=== PATIENT | male | born 1990 | race Caucasian/White ===

== ENCOUNTER 2019-11-19 13:45 | Emergency (ER) | payer MEDICAID ==
--- NOTE | 2019-11-19 13:55 | ERPHSYRPT ---
- History of Present Illness Time Seen by Provider: 11/19/19 13:55 Source: patient Exam Limitations: no limitations Physician History: Patient is a 29-year-old male who presents with a chief complaint of a cough. Onset reported was last , 03/2020. In addition to his cough, endorsed having sinus congestion, rhinorrhea, and a hoarse voice. Of note, the patient reportedly is homeless and just traveled from [facility] to [facility] to stay with family. He states that he sustained a laceration to his left anterior leg a week ago when he was walking in a shop in the dark and tripped over a metal pulling trailer resulting in the injury. He is concerned that he may have sustained a wound infection which led to his URI symptoms. He denies fever, chills, shortness of breath, chest pain, nausea, vomiting in addition to diarrhea and abdominal pain. Of note, the patient states that he is a daily drinker and had 3-4 shots of liquor this morning and usually consumes 1/5 of liquor a day. The patient is also a daily smoker and smokes marijuana with his last marijuana use being yesterday. His last tetanus prophylaxis was reportedly 4 to 5 years ago. He does not have a primary care provider which he follows with. Allergies/Adverse Reactions: watermelon Allergy (Mild, Verified 11/19/19 13:59) Hives - Review of Systems Constitutional: No Fever, No Chills Eyes: No Symptoms Ears, Nose, & Throat: Nose Congestion, Sinus Drainage, Hoarse, No Stridor Respiratory: Cough, No Dyspnea, No Stridor, No Wheezing Cardiac: No Symptoms, No Chest Pain, No Edema, No Palpitations, No Syncope Abdominal/Gastrointestinal: No Symptoms, No Nausea, No Vomiting Musculoskeletal: No Symptoms Skin: Other (Laceration to anterior left lower leg) Neurological: No Symptoms Endocrine: No Symptoms Hematologic/Lymphatic: No Symptoms Immunological/Allergic: No Symptoms All Other Systems: Reviewed and Negative - Nursing Vital Signs Nursing Vital Signs: Initial Vital Signs Temperature 97.8 F 11/19/19 13:53 Pulse Rate 94 H 11/19/19 13:53 Respiratory Rate 22 11/19/19 13:53 Blood Pressure 140/92 11/19/19 13:53 O2 Sat by Pulse Oximetry 98 11/19/19 13:53 Pain Scale Pain Intensity 0 - Physical Exam General Appearance: no apparent distress, alert Eye Exam: PERRL/EOMI, No photophobia, No EOM palsy/anisocoria Ears, Nose, Throat Exam: TMs normal, pharynx normal, moist mucous membranes, No TM abnormal (R), No TM abnormal (L), No pharyngeal erythema, No tonsillar exudate Neck Exam: non-tender, supple, meningismus Respiratory Exam: normal breath sounds, lungs clear, airway intact, No chest tenderness, No respiratory distress, No diminished breath sounds Cardiovascular Exam: regular rate/rhythm, normal heart sounds, capillary refill <2 sec, No murmur, No friction rub, No gallop, No edema, No pulse deficit Gastrointestinal/Abdomen Exam: soft, No tenderness, No distention Rectal Exam: deferred Extremity Exam: other (There was an estimated 7 to 10 cm in length laceration/ wound noted to the anterior aspect of the left lower leg with mild surrounding swelling but with no erythema, induration, fluctuance or increased warmth and a wound already had eschar/scab. Crepitus or deformity noted to the left lower extremity.), No pedal edema, No swelling, No tenderness Neurologic Exam: alert, oriented x 3, cooperative Skin Exam: warm, dry, other (There was an estimated 7 to 10 cm in length laceration/wound noted to the anterior aspect of the left lower leg with mild surrounding swelling but with no erythema, induration, fluctuance or increased warmth and a wound already had eschar/scab. Crepitus or deformity noted to the left lower extremity.), No rash, No petechiae, No jaundice SpO2 Interpretation: normal O2 Delivery: Room Air - Course Nursing assessment & vital signs reviewed: Yes - Radiology Exams Chest X-ray Interpretation: Reviewed by me, Negative Ordered Tests: Active Orders 24 hr Category Date Time Status CHEST 2 VIEWS (PA AND LAT) Stat Exams 11/19/19 14:19 Taken - Progress Progress: unchanged Progress Note: 11/19/19 21:21 Toxic in appearance. The patient's [place]. Reviewed show no evidence of focal pneumonia. I suspect his symptoms are likely secondary to a viral upper respiratory tract infection. He has no fever and he is outside the window to receive Tamiflu given and his symptoms are greater than 48 hours in duration and therefore since he will not be prescribed any antivirals for influenza the utility for testing was thought to be a moot point given that it would not policy change clerk. His wound appears to be healing well and does not appear to need primary closure in the emergency department at this time given that it is nearly a week old. The patient was instructed to refrain from smoking and using marijuana in addition to attempting to cut down on his alcohol use. He was prescribed symptomatic treatment to include Tessalon Perles, albuterol, in addition to saline nasal spray and Afrin for symptomatic relief. Counseled pt/family regarding: diagnosis, need for follow-up, rad results, smoking cessation - Departure Departure Disposition: Home, In-patient Admission Clinical Impression: Upper respiratory tract infection, Laceration of left leg, Tobacco abuse, Alcoholism, Elevated blood pressure reading Condition: Stable Critical Care Time: No Referrals: DOCTOR,NO FAMILY [Primary Care Provider] - Instructions: Alcohol Use - When Is Drinking a Problem?, High Blood Pressure in Adults, Viral Upper Respiratory Infection, Adult (DC), Wound Care, Quitting Smoking Prescriptions: Benzonatate [Tessalon Perle] 100 mg PO [id number] PRN #30 capsule PRN Reason: Cough Albuterol 8 gm Mdi Hfa [Ventolin Hfa MDI] 90 mcg IH Q4H PRN #1 [id number] PRN Reason: Shortness Of Breath Oxymetazoline HCl Nasal [Afrin Nasal Ramsay] 15 ml NS BID 3 Days #1 bottle Sodium Chloride [Saline Nasal Ramsay] 30 ml NS BID PRN #1 spray
[2019-11-19 14:00] VITALS: O2SAT 98
[2019-11-19 14:50] VITALS: BP 130/85; PULSE 93
--- NOTE | 2019-11-20 10:27 | XRAY ---
Indication: Cough. Comparison: None PA/lateral chest demonstrates normal heart, lungs, and bony thorax with a few incidental tiny calcified granulomas.
== END 2019-11-19 15:08 | disposition home or self-care (01) ==
LOC: ED 13:45
DX: J06.9 Acute upper respiratory infection, unspecified (principal)
CPT/HCPCS: 71046; 99284

== ENCOUNTER 2020-04-07 15:45 | Emergency (ER) | payer SELFPAY ==
[2020-04-07] MEDS ORDERED: Zofran 4 MG/2 ML VIAL ONE (16:58)
--- NOTE | 2020-04-07 16:58 | ERPHSYRPT ---
- History of Present Illness Time Seen by Provider: 04/07/20 16:33 Source: patient Exam Limitations: no limitations Patient Subjective Stated Complaint: Pt stated started "feeling bad with tooth on Mon." Has felt bad since. 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 C/o "very hot" Triage Nursing Assessment: Found patient laying on floor in waiting room. States hot and tired.Lethargic but responds to directions. Able to stand on lown.C/o extremely hot and skin hot and dry and reddened. Temp 98.0. States cough and SOB started yesterday. States prod cough of restrepo/brown sputum. Lungs clear but dim in bases. States tooth started hurting las Mon and started taking friends antibiotic of Keflex until today. Physician History: 29 years old male with history of alcohol/tobacco abuse presented in the ER with chief complaint of left lower jaw/tooth ache for the last 5 days with progressive worsening associated with swelling of lower jaw, moderate to severe intensity, aggravated with movements of jaw/swallowing and pain referred to left ear and neck. He denies fever or chills. He has been taking Keflex which was given to him by his friend for the last 2 days. Denies any chest pain palpitations or shortness of breath but what he has at his baseline. Patient is complaining of coughing up yellow-green to brown sputum moderate in amount. Denies any abdominal pain nausea or vomiting. He is complaining of generalized weakness and fatigue with no energy to do his routine activities. 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 On presentation in the ER patient was lying on the floor as he is feeling hot/burning up. He is afebrile. Patient drinks heavily almost half a gallon of vodka daily and last drink was 4 hours ago. Severity: moderate Associated Symptoms: cough, malaise, weakness, No abdominal pain, No shortness of breath, No heartburn, No chills, No chest pain, No fever, No headaches, No loss of appetite Allergies/Adverse Reactions: watermelon Allergy (Mild, Verified 11/19/19 13:59) Hives Hx Tetanus, Diphtheria Vaccination/Date Given: No Hx Influenza Vaccination/Date Given: No Hx Pneumococcal Vaccination/Date Given: No Immunizations Up to Date: No Travel Risk - International Travel Have you traveled outside of the country in past 3 weeks: No - Coronavirus Screening Are you exhibiting any of the following symptoms?: Yes Close contact with a COVID-19 positive Pt in past 14-21 Days: No - Review of Systems Constitutional: Weakness Eyes: No Symptoms Ears, Nose, & Throat: No Symptoms Respiratory: Cough Cardiac: No Symptoms Abdominal/Gastrointestinal: No Symptoms Genitourinary Symptoms: No Symptoms Musculoskeletal: No Symptoms Skin: No Symptoms Psychological: No Symptoms Endocrine: No Symptoms Hematologic/Lymphatic: No Symptoms Immunological/Allergic: No Symptoms - Past Medical History Pertinent Past Medical History: Yes Neurological History: No Pertinent History ENT History: No Pertinent History Cardiac History: No Pertinent History Respiratory History: No Pertinent History Endocrine Medical History: No Pertinent History Musculoskeletal History: No Pertinent History GI Medical History: No Pertinent History History: No Pertinent History Psycho-Social History: No Pertinent History Male Reproductive Disorders: No Pertinent History Other Medical History: states hx frequent ear infections - Past Surgical History Past Surgical History: No Neuro Surgical History: No Pertinent History Cardiac: No Pertinent History Respiratory: No Pertinent History Gastrointestinal: No Pertinent History Genitourinary: No Pertinent History Musculoskeletal: No Pertinent History Male Surgical History: No Pertinent History Other Surgical History: knee surgery, left - Social History Smoking Status: Current every day smoker How long have you smoked: 20 yr Exposure to second hand smoke: Yes Drug Use: none Patient Lives Alone: No - Nursing Vital Signs Nursing Vital Signs: Initial Vital Signs Temperature 98.0 F 04/07/20 16:20 Pulse Rate 95 H 04/07/20 16:20 Respiratory Rate 22 04/07/20 16:20 Blood Pressure 135/95 04/07/20 16:20 O2 Sat by Pulse Oximetry 98 04/07/20 16:20 Pain Scale Pain Intensity 2 - Physical Exam General Appearance: no apparent distress, alert, anxiety Eye Exam: PERRL/EOMI, eyes nml inspection Ears, Nose, Throat Exam: normal ENT inspection, TMs normal, pharyngeal erythema, other (Mildly splinting left premolar and molar area gingiva. No fluctuation. Tenderness to touch. 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, nml cerebellar function, nml station & gait, sensation nml, other, No motor deficits Skin Exam: normal color Lymphatic Exam: adenopathy SpO2 Interpretation: normal SpO2: 98 O2 Delivery: Room Air - Course Nursing assessment & vital signs reviewed: Yes EKG Interpreted by Me: RATE ([id number]), Sinus Rhythm, NORMAL AXIS, NORMAL INTERVALS, NORMAL QRS Ordered Tests: Active Orders 24 hr Category Date Time Status Accucheck STAT Care 04/07/20 16:49 Completed EKG-ER Only STAT Care 04/07/20 16:49 Completed IV Insertion STAT Care 04/07/20 16:49 Completed IV Insertion STAT Care 04/07/20 16:51 Completed CHEST 1 VIEW (PORTABLE) Stat Exams 04/07/20 16:50 Completed CBC W DIFF Stat Lab 04/07/20 16:49 Completed CK (IN-HOUSE) [CK-Creatinine Phosphokinase] Stat Lab 04/07/20 Completed CMP Stat Lab 04/07/20 16:49 Completed ETHYL ALCOHOL Stat Lab 04/07/20 16:49 Completed LIPASE Stat Lab 04/07/20 16:49 Completed Lactic Acid Stat Lab 04/07/20 17:20 Completed Lactic Acid Stat Lab 04/07/20 19:23 Completed MAGNESIUM Stat Lab 04/07/20 16:49 Completed TROPONIN Q3H Lab 04/07/20 16:49 Completed TROPONIN Q3H Lab 04/07/20 20:00 Completed UA W/RFX UR CULTURE Stat Lab 04/07/20 16:54 Completed Urine Triage Profile Stat Lab 04/07/20 16:54 Completed Medication Summary Discontinued Medications Generic Name Dose Route Start Last Admin Trade Name Freq PRN Reason Stop Dose Admin Amoxicillin/Clavulanate Potassium 875 mg 04/07/20 20:27 04/07/20 20:30 Augmentin 875-125 Tablet PO 04/07/20 20:28 875 mg STAT ONE Administration Amoxicillin/Clavulanate Potassium Confirm 04/07/20 20:29 Augmentin 875-125 Tablet Administered 04/07/20 20:30 Dose 875 mg .ROUTE .STK-MED ONE Sodium Chloride 1,000 mls @ 999 mls/hr 04/07/20 16:49 04/07/20 18:16 Sodium Chloride 0.9% 1000 Ml IV 04/07/20 17:49 Infused .Q1H1M STA Infusion Sodium Chloride 1,000 mls @ 999 mls/hr 04/07/20 16:51 04/07/20 18:16 Sodium Chloride 0.9% 1000 Ml IV 04/07/20 17:51 Infused .Q1H1M STA Infusion Sodium Chloride Confirm 04/07/20 16:59 Sodium Chloride 0.9% 1000 Ml Administered 04/07/20 17:00 Dose 2,000 mls @ ud .ROUTE .STK-MED ONE Sodium Chloride 1,000 mls @ 999 mls/hr 04/07/20 18:53 04/07/20 20:32 Sodium Chloride 0.9% 1000 Ml IV 04/07/20 19:53 Infused .Q1H1M STA Infusion Sodium Chloride Confirm 04/07/20 18:55 Sodium Chloride 0.9% 1000 Ml Administered 04/07/20 18:56 Dose 1,000 mls @ ud .ROUTE .STK-MED ONE Lidocaine HCl 5 ml 04/07/20 16:56 04/07/20 17:04 Xylocaine Viscous 2% 20 Ml Cup PO 04/07/20 16:57 5 ml STAT ONE Administration Lidocaine HCl Confirm 04/07/20 16:59 Xylocaine Hcl Viscous * Administered 04/07/20 17:00 Dose 5 ml .ROUTE .STK-MED ONE Ondansetron HCl 4 mg 04/07/20 16:49 04/07/20 17:03 Zofran 4 Mg/2 Ml Vial IV 04/07/20 16:50 4 mg STAT ONE Administration Ondansetron HCl Confirm 04/07/20 16:58 Zofran 4 Mg/2 Ml Vial Administered 04/07/20 16:59 Dose 4 mg .ROUTE .STK-MED ONE Lab/Rad Data: Laboratory Result Diagrams 04/07/20 16:49 04/07/20 16:49 Laboratory Results 04/07/20 04/07/20 04/07/20 Range/Units Unknown Unknown 20:00 WBC (4.0-10.5) K/mm3 RBC (4.1-5.6) M/mm3 Hgb (12.5-18.0) gm/dl Hct (42-50) % MCV (78-100) fl MCH (26-32) pg MCHC (32-36) g/dl RDW (11.5-14.0) % Plt Count (150-450) K/mm3 MPV (7.5-11.0) fl Gran % (36.0-66.0) % Eos # (Auto) (0-0.5) Absolute Lymphs (auto) (1.0-4.6) Absolute Monos (auto) (0.0-1.3) Lymphocytes % (24.0-44.0) % Monocytes % (0.0-12.0) % Eosinophils % (0.00-5.0) % Basophils % (0.0-0.4) % Absolute Granulocytes (1.4-6.9) Basophils # (0-0.4) Sodium (137-145) mmol/L Potassium (3.5-5.1) mmol/L Chloride (98-107) mmol/L Carbon Dioxide (22-30) mmol/L Anion Gap (5-15) MEQ/L BUN (9-20) mg/dL Creatinine (0.66-1.25) mg/dL Estimated GFR ML/MIN Glucose (74-106) mg/dL Lactic Acid (0.4-2.0) Calcium (8.4-10.2) mg/dL Magnesium (1.6-2.3) mg/dL Total Bilirubin (0.2-1.3) mg/dL AST (17-59) U/L ALT (0-50) U/L Alkaline Phosphatase (38-126) U/L Creatine Kinase 68 (55-170) U/L Troponin I < 0.012 (0.000-0.034) ng/mL Serum Total Protein (6.3-8.2) g/dL Albumin (3.5-5.0) g/dL Lipase (23-300) U/L Urine Color (YELLOW) Urine Appearance (CLEAR) Urine pH (5-6) Ur Specific [place] (1.005-1.025) Urine Protein (Negative) Urine Ketones (NEGATIVE) Urine Blood (0-5) Tarik/ul Urine Nitrite (NEGATIVE) Urine Bilirubin (NEGATIVE) Urine Urobilinogen (0-1) mg/dL Ur Leukocyte Esterase (NEGATIVE) Urine WBC (Auto) (0-5) /HPF Urine RBC (Auto) (0-2) /HPF U Epithel Cells (Auto) (FEW) /HPF Urine Bacteria (Auto) (NEGATIVE) /HPF Urine Culture Reflexed (NO) Urine Glucose (NEGATIVE) mg/dL Urine Opiates Level (NEGATIVE) Ur Methadone (NEGATIVE) Urine Barbiturates (NEGATIVE) Ur Phencyclidine (PCP) (NEGATIVE) Urine Amphetamine (NEGATIVE) U Benzodiazepine Level (NEGATIVE) Urine Cocaine (NEGATIVE) Urine Marijuana (THC) (NEGATIVE) Ethyl Alcohol (0-10) mg/dL Influenza Type A Ag (NEGATIVE) Influenza Type B Ag (NEGATIVE) RSV (PCR) (Negative) Group A Strep Antibody NOT DETECTED (NEGATIVE) 04/07/20 04/07/20 04/07/20 Range/Units 19:23 17:20 17:00 WBC (4.0-10.5) K/mm3 RBC (4.1-5.6) M/mm3 Hgb (12.5-18.0) gm/dl Hct (42-50) % MCV (78-100) fl MCH (26-32) pg MCHC (32-36) g/dl RDW (11.5-14.0) % Plt Count (150-450) K/mm3 MPV (7.5-11.0) fl Gran % (36.0-66.0) % Eos # (Auto) (0-0.5) Absolute Lymphs (auto) (1.0-4.6) Absolute Monos (auto) (0.0-1.3) Lymphocytes % (24.0-44.0) % Monocytes % (0.0-12.0) % Eosinophils % (0.00-5.0) % Basophils % (0.0-0.4) % Absolute Granulocytes (1.4-6.9) Basophils # (0-0.4) Sodium (137-145) mmol/L Potassium (3.5-5.1) mmol/L Chloride (98-107) mmol/L Carbon Dioxide (22-30) mmol/L Anion Gap (5-15) MEQ/L BUN (9-20) mg/dL Creatinine (0.66-1.25) mg/dL Estimated GFR ML/MIN Glucose (74-106) mg/dL Lactic Acid 2.4 H 3.6 H (0.4-2.0) Calcium (8.4-10.2) mg/dL Magnesium (1.6-2.3) mg/dL Total Bilirubin (0.2-1.3) mg/dL AST (17-59) U/L ALT (0-50) U/L Alkaline Phosphatase (38-126) U/L Creatine Kinase (55-170) U/L Troponin I (0.000-0.034) ng/mL Serum Total Protein (6.3-8.2) g/dL Albumin (3.5-5.0) g/dL Lipase (23-300) U/L Urine Color (YELLOW) Urine Appearance (CLEAR) Urine pH (5-6) Ur Specific [place] (1.005-1.025) Urine Protein (Negative) Urine Ketones (NEGATIVE) Urine Blood (0-5) Tarik/ul Urine Nitrite (NEGATIVE) Urine Bilirubin (NEGATIVE) Urine Urobilinogen (0-1) mg/dL Ur Leukocyte Esterase (NEGATIVE) Urine WBC (Auto) (0-5) /HPF Urine RBC (Auto) (0-2) /HPF U Epithel Cells (Auto) (FEW) /HPF Urine Bacteria (Auto) (NEGATIVE) /HPF Urine Culture Reflexed (NO) Urine Glucose (NEGATIVE) mg/dL Urine Opiates Level (NEGATIVE) Ur Methadone (NEGATIVE) Urine Barbiturates (NEGATIVE) Ur Phencyclidine (PCP) (NEGATIVE) Urine Amphetamine (NEGATIVE) U Benzodiazepine Level (NEGATIVE) Urine Cocaine (NEGATIVE) Urine Marijuana (THC) (NEGATIVE) Ethyl Alcohol (0-10) mg/dL Influenza Type A Ag NEGATIVE (NEGATIVE) Influenza Type B Ag NEGATIVE (NEGATIVE) RSV (PCR) NEGATIVE (Negative) Group A Strep Antibody (NEGATIVE) 04/07/20 04/07/20 04/07/20 Range/Units 16:54 16:54 16:49 WBC (4.0-10.5) K/mm3 RBC (4.1-5.6) M/mm3 Hgb (12.5-18.0) gm/dl Hct (42-50) % MCV (78-100) fl MCH (26-32) pg MCHC (32-36) g/dl RDW (11.5-14.0) % Plt Count (150-450) K/mm3 MPV (7.5-11.0) fl Gran % (36.0-66.0) % Eos # (Auto) (0-0.5) Absolute Lymphs (auto) (1.0-4.6) Absolute Monos (auto) (0.0-1.3) Lymphocytes % (24.0-44.0) % Monocytes % (0.0-12.0) % Eosinophils % (0.00-5.0) % Basophils % (0.0-0.4) % Absolute Granulocytes (1.4-6.9) Basophils # (0-0.4) Sodium (137-145) mmol/L Potassium (3.5-5.1) mmol/L Chloride (98-107) mmol/L Carbon Dioxide (22-30) mmol/L Anion Gap (5-15) MEQ/L BUN (9-20) mg/dL Creatinine (0.66-1.25) mg/dL Estimated GFR ML/MIN Glucose (74-106) mg/dL Lactic Acid (0.4-2.0) Calcium (8.4-10.2) mg/dL Magnesium (1.6-2.3) mg/dL Total Bilirubin (0.2-1.3) mg/dL AST (17-59) U/L ALT (0-50) U/L Alkaline Phosphatase (38-126) U/L Creatine Kinase (55-170) U/L Troponin I < 0.012 (0.000-0.034) ng/mL Serum Total Protein (6.3-8.2) g/dL Albumin (3.5-5.0) g/dL Lipase (23-300) U/L Urine Color YELLOW (YELLOW) Urine Appearance CLEAR (CLEAR) Urine pH 8.0 (5-6) Ur Specific [place] 1.006 (1.005-1.025) Urine Protein NEGATIVE (Negative) Urine Ketones TRACE (NEGATIVE) Urine Blood NEGATIVE (0-5) Tarik/ul Urine Nitrite NEGATIVE (NEGATIVE) Urine Bilirubin NEGATIVE (NEGATIVE) Urine Urobilinogen 2 (0-1) mg/dL Ur Leukocyte Esterase NEGATIVE (NEGATIVE) Urine WBC (Auto) NONE (0-5) /HPF Urine RBC (Auto) NONE (0-2) /HPF U Epithel Cells (Auto) NONE (FEW) /HPF Urine Bacteria (Auto) NONE (NEGATIVE) /HPF Urine Culture Reflexed NO (NO) Urine Glucose NEGATIVE (NEGATIVE) mg/dL Urine Opiates Level NEGATIVE (NEGATIVE) Ur Methadone NEGATIVE (NEGATIVE) Urine Barbiturates NEGATIVE (NEGATIVE) Ur Phencyclidine (PCP) NEGATIVE (NEGATIVE) Urine Amphetamine NEGATIVE (NEGATIVE) U Benzodiazepine Level NEGATIVE (NEGATIVE) Urine Cocaine NEGATIVE (NEGATIVE) Urine Marijuana (THC) NEGATIVE (NEGATIVE) Ethyl Alcohol (0-10) mg/dL Influenza Type A Ag (NEGATIVE) Influenza Type B Ag (NEGATIVE) RSV (PCR) (Negative) Group A Strep Antibody (NEGATIVE) 04/07/20 04/07/20 Range/Units 16:49 16:49 WBC 6.8 (4.0-10.5) K/mm3 RBC 5.51 (4.1-5.6) M/mm3 Hgb 17.7 (12.5-18.0) gm/dl Hct 50.1 H (42-50) % MCV 90.9 (78-100) fl MCH 32.1 H (26-32) pg MCHC 35.3 (32-36) g/dl RDW 12.6 (11.5-14.0) % Plt Count 278 (150-450) K/mm3 MPV 10.1 (7.5-11.0) fl Gran % 52.5 (36.0-66.0) % Eos # (Auto) 0.14 (0-0.5) Absolute Lymphs (auto) 2.26 (1.0-4.6) Absolute Monos (auto) 0.77 (0.0-1.3) Lymphocytes % 33.3 (24.0-44.0) % Monocytes % 11.4 (0.0-12.0) % Eosinophils % 2.1 (0.00-5.0) % Basophils % 0.7 (0.0-0.4) % Absolute Granulocytes 3.56 (1.4-6.9) Basophils # 0.05 (0-0.4) Sodium 143 (137-145) mmol/L Potassium 4.1 (3.5-5.1) mmol/L Chloride 104 (98-107) mmol/L Carbon Dioxide 26 (22-30) mmol/L Anion Gap 17.9 H (5-15) MEQ/L BUN 12 (9-20) mg/dL Creatinine 0.71 (0.66-1.25) mg/dL Estimated GFR > 60.0 ML/MIN Glucose 80 (74-106) mg/dL Lactic Acid (0.4-2.0) Calcium 9.5 (8.4-10.2) mg/dL Magnesium 2.1 (1.6-2.3) mg/dL Total Bilirubin 0.70 (0.2-1.3) mg/dL AST 373 H (17-59) U/L ALT 245 H (0-50) U/L Alkaline Phosphatase 149 H (38-126) U/L Creatine Kinase (55-170) U/L Troponin I (0.000-0.034) ng/mL Serum Total Protein 8.7 H (6.3-8.2) g/dL Albumin 5.1 H (3.5-5.0) g/dL Lipase 94 (23-300) U/L Urine Color (YELLOW) Urine Appearance (CLEAR) Urine pH (5-6) Ur Specific [place] (1.005-1.025) Urine Protein (Negative) Urine Ketones (NEGATIVE) Urine Blood (0-5) Tarik/ul Urine Nitrite (NEGATIVE) Urine Bilirubin (NEGATIVE) Urine Urobilinogen (0-1) mg/dL Ur Leukocyte Esterase (NEGATIVE) Urine WBC (Auto) (0-5) /HPF Urine RBC (Auto) (0-2) /HPF U Epithel Cells (Auto) (FEW) /HPF Urine Bacteria (Auto) (NEGATIVE) /HPF Urine Culture Reflexed (NO) Urine Glucose (NEGATIVE) mg/dL Urine Opiates Level (NEGATIVE) Ur Methadone (NEGATIVE) Urine Barbiturates (NEGATIVE) Ur Phencyclidine (PCP) (NEGATIVE) Urine Amphetamine (NEGATIVE) U Benzodiazepine Level (NEGATIVE) Urine Cocaine (NEGATIVE) Urine Marijuana (THC) (NEGATIVE) Ethyl Alcohol 338 H (0-10) mg/dL Influenza Type A Ag (NEGATIVE) Influenza Type B Ag (NEGATIVE) RSV (PCR) (Negative) Group A Strep Antibody (NEGATIVE) - Progress Progress: improved, pain not gone completely, re-examined Progress Note: 04/07/20 21:00 29 years old is evaluated for left lower jaw/tooth ache along w ith generalized weakness fatigue and feeling dehydrated. He is given IV fluids and Toradol, on reevaluation his pain is better. Work-up showed some element of dehydration with lactic acidosis and blood alcohol of 338. Part of lactic acidosis is from alcohol use. He is given fluid boluses, on reevaluation feeling much better. Has some elevated liver enzyme which I believe is chronic from his alcohol use. I have rechecked his lactate which is improved from 3.6- 2.4. No obvious focus of infection. Advised drinking plenty of fluids and cutting down on alcohol. I have started him on Augmentin and given ibuprofen for pain relief and recommended outpatient follow-up with dentist. Discussed signs symptoms of worsening needing return to ER which he seems understanding. Although patient alcohol is high but he was sober to begin with, no signs of intoxication, I believe patient is a heavy drinker and stays high. He is being discharged with his sister. Counseled pt/family regarding: lab results, diagnosis, need for follow-up, rad results - Departure Departure Disposition: Home Clinical Impression: Alcohol abuse, Dental infection, Lactic acidosis, General weakness Condition: Stable Critical Care Time: Yes Critical Care Time(excluding separately billable procedures): Critical 30-74 mins Referrals: DOCTOR,NO FAMILY [Primary Care Provider] - ROSA DUPREE [ACTIVE STAFF] - (1-2 days for re evaluation ) SABINO HOYOS DDS [NON-STAFF PHY W/O PRIVILEGES] - (Tomorrow for reevaluation) Instructions: Generalized Weakness (DC), Alcohol Abuse and Alcoholism (DC) Additional Instructions: Drink plenty of fluids. Take Tylenol/ibuprofen as needed. Cut down on your drinking. Follow-up with primary care and dentist for reevaluation. Return to ER for any worsening. Prescriptions: Ibuprofen 600 mg PO Q6HPRN PRN 10 Days #20 tablet PRN Reason: Pain Amox Tr/Potass Clav. 875 mg [Augmentin 875-125 Tablet] 875 mg PO BID 7 Days #14 tablet
[2020-04-07] MEDS ORDERED: XYLOCAINE HCl Viscous ONE (16:59)
[2020-04-07] MEDS ORDERED: Sodium Chloride 0.9% 1000 ML 2,000 ML ONE (16:59)
[2020-04-07] MEDS: Zofran 4 MG/2 ML VIAL IV ONE (17:03)
[2020-04-07] MEDS: Sodium Chloride 0.9% 1000 ML 1,000 ML IV STA ×3 (17:03→18:56)
[2020-04-07] MEDS: XYLOCAINE VISCOUS 2% 20 ML CUP PO ONE (17:04)
[2020-04-07 17:07] LABS: Absolute Neutrophil Ct (ANC) 3.56 (1.4-6.9); BASOPHIL % 0.7 % (0.0-0.4); Basophil (Absolute #) 0.05 (0-0.4); Eosinophil % 2.1 % (0.00-5.0); Eosinophil (Absolute #) 0.14 (0-0.5); Hematocrit 50.1 % (42-50); Hemoglobin 17.7 gm/dl (12.5-18.0); Lymphocyte (Absolute #) 2.26 (1.0-4.6); Lymphocytes % 33.3 % (24.0-44.0); Mean Cell Volume 90.9 fl (78-100); Mean Corpuscular Hemoglobin 32.1 pg (26-32); Mean Corpuscular Hgb Concent. 35.3 g/dl (32-36); Mean Platelet Volume 10.1 fl (7.5-11.0); Monocyte (Absolute #) 0.77 (0.0-1.3); Monocytes % 11.4 % (0.0-12.0); Neutrophil % 52.5 % (36.0-66.0); Platelet Count 278 K/mm3 (150-450); Red Blood Count 5.51 M/mm3 (4.1-5.6); Red Cell Distribution Width 12.6 % (11.5-14.0); White Blood Count 6.8 K/mm3 (4.0-10.5)
[2020-04-07 17:21] LABS: ALBUMIN 5.1 g/dL (3.5-5.0); ALKALINE PHOSPHATASE 149 U/L (38-126); ANION GAP 17.9 MEQ/L (5-15); BLOOD UREA NITROGEN 12 mg/dL (9-20); CHLORIDE 104 mmol/L (98-107); Calcium 9.5 mg/dL (8.4-10.2); Carbon Dioxide 26 mmol/L (22-30); Creatinine 1 0.71 mg/dL (0.66-1.25); Glucose 80 mg/dL (74-106); LIPASE 94 U/L (23-300); MAGNESIUM 2.1 mg/dL (1.6-2.3); Potassium 4.1 mmol/L (3.5-5.1); SGOT/AST 373 U/L (17-59); SGPT/ALT 245 U/L (0-50); SODIUM 143 mmol/L (137-145); Total Protein 8.7 g/dL (6.3-8.2)
--- NOTE | 2020-04-07 17:24 | XRAY ---
Indication: Weakness 1 week. Comparison: November 19, 2019. Portable chest again demonstrates normal heart, lungs, and bony thorax with incidental tiny right mid lung calcified granuloma.
[2020-04-07 17:26] LABS: Appearance CLEAR (CLEAR); Bilirubin NEGATIVE (NEGATIVE); Blood NEGATIVE Ery/ul (0-5); Glucose NEGATIVE (NEGATIVE); Ketones TRACE (NEGATIVE); Leukocyte Esterase NEGATIVE (NEGATIVE); Nitrite NEGATIVE (NEGATIVE); Protein,Urine Dip NEGATIVE (Negative); Specific Gravity 1.006 (1.005-1.025); Urobilinogen 2 mg/dL (0-1)
[2020-04-07 17:37] LABS: ETHYL ALCOHOL 338 mg/dL (0-10)
[2020-04-07 17:39] LABS: Amphetamine,Urine NEGATIVE (NEGATIVE); Barbiturate,Urine NEGATIVE (NEGATIVE); Benzodiazepine,Urine NEGATIVE (NEGATIVE); Cocaine,Urine NEGATIVE (NEGATIVE); Methadone,Urine NEGATIVE (NEGATIVE); Opiate,Urine NEGATIVE (NEGATIVE); PCP,Urine NEGATIVE (NEGATIVE); THC,Urine NEGATIVE (NEGATIVE)
[2020-04-07 18:41] LABS: INFLUENZA A NEGATIVE (NEGATIVE); INFLUENZA B NEGATIVE (NEGATIVE); RESPIRATORY SYNCTIAL VIRUS NEGATIVE (Negative)
[2020-04-07] MEDS ORDERED: Sodium Chloride 0.9% 1000 ML 1,000 ML ONE (18:55)
[2020-04-07] MEDS ORDERED: Augmentin 875-125 Tablet ONE (20:29)
[2020-04-07] MEDS: Augmentin 875-125 Tablet PO ONE (20:30)
[2020-04-07 20:32] VITALS: BP 109/64; PULSE 65
[2020-04-07 20:33] VITALS: O2SAT 98
== END 2020-04-07 20:53 | disposition home or self-care (01) ==
LOC: ED 15:45
DX: F10.10 Alcohol abuse, uncomplicated (principal); K04.7 Periapical abscess without sinus; E87.2 Acidosis; R53.1 Weakness
CPT/HCPCS: 36000; 36415; 71045; 80053; 80307; 81001; 82550; 82962; 83605; 83690; 83735; 84484; 85025; 87631; 87651; 93005; 96360; 96361; 96374; 99285; 99291; J2405; A9270-GY; G0480

== ENCOUNTER 2023-06-02 20:49 | Emergency (ER) | payer SELFPAY ==
[2023-06-02 21:09] VITALS: RESP 18; TEMP 98.9
[2023-06-02] MEDS ORDERED: TETRACAINE 0.5% STERI-UNIT SOL OP ONE (21:11)
[2023-06-02] MEDS ORDERED: TETRACAINE 0.5% STERI-UNIT SOL OP STA (21:12)
[2023-06-02 21:13] VITALS: O2SAT 97
[2023-06-02] MEDS ORDERED: NORCO 5/325 MG PO ONE (22:00)
[2023-06-02] MEDS ORDERED: GARAMYCIN 0.3% OPHTH SOL OP ONE ×2 (22:01→22:03)
[2023-06-02] MEDS ORDERED: GARAMYCIN 0.3% OPHTH SOL ONE (22:02)
[2023-06-02] MEDS ORDERED: NORCO 5/325 MG ONE (22:02)
--- NOTE | 2023-06-02 22:06 | ERPHSYRPT ---
- History of Present Illness Source: patient Exam Limitations: no limitations Patient Subjective Stated Complaint: pt states that he was grinding metal yesterday and states he felt something hit his rt eye. pt states that he seen something in his rt eye Triage Nursing Assessment: pt ambulated into the er; pt is axo x4; c/o rt eye injury; pt states 8/10 pain to rt eye; foreign body present to rt iris; redness present rt sclera; swelling present to surrounding area to rt eye; pt states pain and pressure to rt eye; skin PDW; to respiratory distress; vitals wnl Physician History: 32 yo WM w metal R eye x 1 day. Pt stated that it occurred while grinding at work. Pain is moderate, and he has some blurry vision. He does not wear contact lenses. Timing/Duration: yesterday Location: right eye Severity: mild Apparent Injury: yes Associated Symptoms: pain, sensitivity to light, redness Visual Assistive Devices: None Chemical Exposure: No Trauma: No Welding Arc/Tanning Bed Exposure: No Allergies/Adverse Reactions: watermelon Allergy (Mild, Verified 06/02/23 20:54) Hives Hx Tetanus, Diphtheria Vaccination/Date Given: No (unsure) Hx Influenza Vaccination/Date Given: No Hx Pneumococcal Vaccination/Date Given: No Travel Risk - International Travel Have you traveled outside of the country in past 3 weeks: No - Coronavirus Screening Are you exhibiting any of the following symptoms?: No Close contact with a COVID-19 positive Pt in past 14-21 Days: No - Vaccine Status Have you recieved a Covid-19 vaccination: No - Review of Systems Constitutional: No Symptoms Ears, Nose, & Throat: No Symptoms Respiratory: No Symptoms Cardiac: No Symptoms Abdominal/Gastrointestinal: No Symptoms Genitourinary Symptoms: No Symptoms Musculoskeletal: No Symptoms Skin: No Symptoms Neurological: No Symptoms Psychological: No Symptoms Endocrine: No Symptoms Hematologic/Lymphatic: No Symptoms Immunological/Allergic: No Symptoms - Past Medical History Pertinent Past Medical History: Yes Neurological History: No Pertinent History ENT History: No Pertinent History Cardiac History: No Pertinent History Respiratory History: No Pertinent History Endocrine Medical History: No Pertinent History Musculoskeletal History: No Pertinent History GI Medical History: No Pertinent History History: No Pertinent History Psycho-Social History: No Pertinent History Male Reproductive Disorders: No Pertinent History Other Medical History: states hx frequent ear infections - Past Surgical History Past Surgical History: Yes Neuro Surgical History: No Pertinent History Cardiac: No Pertinent History Respiratory: No Pertinent History Gastrointestinal: No Pertinent History Genitourinary: No Pertinent History Musculoskeletal: Orthopedic Surgery Male Surgical History: No Pertinent History Other Surgical History: knee surgery, left - Social History Smoking Status: Current every day smoker How long have you smoked: 20 yr Exposure to second hand smoke: Yes Drug Use: marijuana Patient Lives Alone: No - Nursing Vital Signs Nursing Vital Signs: Initial Vital Signs Temperature 98.9 F 06/02/23 20:57 Pulse Rate 95 H 06/02/23 20:57 Respiratory Rate 18 06/02/23 20:57 Blood Pressure 127/85 06/02/23 20:57 O2 Sat by Pulse Oximetry 98 06/02/23 20:57 Pain Scale Pain Intensity 6 WNL - Physical Exam Vision Acuity Degree Evaluation Phase: Uncorrected Vision Acuity Right Eye: 20/20 Vision Acuity Left Eye: 20/30 Eye Exam: right eye: erythema, foreign body (metal at 8 O'clock), bilateral eye: PERRL, EOMI Ears, Nose, Throat Exam: normal ENT inspection, TMs normal, pharynx normal Neck Exam: normal inspection, non-tender, supple, full range of motion Respiratory Exam: normal breath sounds, lungs clear, airway intact, No respiratory distress Cardiovascular Exam: regular rate/rhythm, normal heart sounds, normal peripheral pulses, capillary refill <2 sec, No murmur Gastrointestinal Exam: soft, normal bowel sounds, No tenderness Extremity Exam: normal inspection, normal range of motion Neurologic: alert, oriented x 3, cooperative, 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, normal mood/affect, nml cerebellar function, nml station & gait, sensation nml, No motor deficits, No sensory deficit Skin Exam: normal color, warm, dry, No rash Lymphatic: No adenopathy SpO2 Interpretation: normal SpO2: 97 O2 Delivery: Room Air Procedures - Eye Procedure Tetracaine Drops Administered: Yes Eye FB Removal: removal w/ needle Remaining Material after FB Removal: none Eye Irrigated w/ Saline (ccs): 10 Antibiotic Oinment/Drps Admin: right eye - Course Nursing assessment & vital signs reviewed: Yes Ordered Tests: Medication Summary Discontinued Medications Generic Name Dose Route Start Last Admin Trade Name Freq PRN Reason Stop Dose Admin Hydrocodone Bitart/Acetaminophen 1 tab 06/02/23 22:00 06/02/23 22:05 Hydrocodone/Apap 5/325 1 Tab Tablet PO 06/02/23 22:01 1 tab STAT ONE Administration Hydrocodone Bitart/Acetaminophen Confirm 06/02/23 22:02 Hydrocodone/Apap 5/325 1 Tab Tablet Administered 06/02/23 22:03 Dose 1 tab .ROUTE .STK-MED ONE Gentamicin Sulfate 5 ml 06/02/23 22:01 06/02/23 22:04 Gentamicin Sulfate 0.3% 5 Ml Eye Drops OP 06/02/23 22:02 Not Given STAT ONE Gentamicin Sulfate 5 ml 06/02/23 22:03 06/02/23 22:05 Gentamicin Sulfate 0.3% 5 Ml Eye Drops OP 06/02/23 22:04 5 ml STAT ONE Administration Gentamicin Sulfate Confirm 06/02/23 22:02 Gentamicin Sulfate 0.3% 5 Ml Eye Drops Administered 06/02/23 22:03 Dose 5 ml .ROUTE .STK-MED ONE Tetracaine HCl 4 ml 06/02/23 21:12 06/02/23 21:13 Tetracaine Hcl/Pf 4 Ml Bottle OP 06/02/23 21:13 4 ml STAT STA Administration Tetracaine HCl Confirm 06/02/23 21:11 Tetracaine Hcl/Pf 4 Ml Bottle Administered 06/02/23 21:12 Dose 4 ml OP .STK-MED ONE - Progress Progress Note: 06/02/23 23:03 Nursing note and vital signs reviewed No food or housing insecurities noted Tetracaine R eye per physician Metal at 8 O'clock removed w 18G needle/No rust ring left No comps Gentamicin drops applied Eye patched [place] 5mg po x1 Pt advised to follow up w eye doctor 06/02/23 23:24 06/02/23 23:26 Counseled pt/family regarding: diagnosis, need for follow-up Medical Desision Making - Risk of complications The pt has a mod risk of morbidity or mortality based on: Need for prescription drug management - Departure Departure Disposition: Home Clinical Impression: Eye foreign body Condition: Stable Critical Care Time: No Referrals: DOCTOR,NO FAMILY [Primary Care Provider] - Follow up/PCP as directed Instructions: Foreign Body in Eye (DC) Additional Instructions: Keep eye shut for 8-12 hours, except to put 4 drops every 4 hours Do not rub eye Keep eye patched tonight Follow up with your eye doctor in 1-2 days Return to ER as needed Prescriptions: Doxycycline Monohydrate 100 mg PO BID 7 Days #14 cap
[2023-06-02 22:15] VITALS: BP 121/65; PULSE 64
== END 2023-06-02 22:21 | disposition home or self-care (01) ==
LOC: ED 20:49
DX: T15.01XA Foreign body in cornea, right eye, initial encounter (principal); W20.8XXA Other cause of strike by thrown, projected or falling object, initial encounter; Y99.0 Civilian activity done for income or pay; Z28.310 Unvaccinated for COVID-19; Z72.0 Tobacco use
CPT/HCPCS: 65220; 99282; A9270-GY